=== PATIENT | female | born 1995 | race Caucasian/White ===

== ENCOUNTER 2018-04-09 18:27 | Emergency (ER) | payer OTHER ==
[2018-04-09 18:47] LABS: URINE HCG POC HCG POSITIVE (Negative)
[2018-04-09 19:45] LABS: ADD MAN DIFF? NO
[2018-04-09 19:54] LABS: BASO % 0 % (0-3); BILIRUBIN,URINE NEGATIVE (NEG); CLARITY,URINE CLEAR; EOS % 0 % (0-3); GLUCOSE,URINE NEGATIVE (NEG); HEMATOCRIT 37.9 % (36.0-47.0); LYMPH # 2.1 x10^3/uL (1.0-4.8); LYMPH % 19 % (24-48); MEAN CORPUSCULAR HEMOGLOBIN 31 pg (25-35); MEAN CORPUSCULAR HGB CONC 34 g/dL (31-37); MEAN CORPUSCULAR VOLUME 90 fL (79-100); MONO # 0.8 x10^3/uL (0.0-1.1); MONO % 7 % (0-9); NEUT # 8.2 x10^3uL (1.8-7.7); NEUT % 74 % (31-73); NITRITE,URINE NEGATIVE (NEG); PLATELET COUNT 224 x10^3/uL (140-400); PROTEIN,URINE NEGATIVE (NEG-TRACE); RED BLOOD COUNT 4.21 x10^6/uL (3.50-5.40); RED CELL DISTRIBUTION WIDTH 12.9 % (11.5-14.5); UROBILINOGEN,URINE 0.2 mg/dL (0.2 mg/dL); WHITE BLOOD COUNT 11.2 x10^3/uL (4.0-11.0)
[2018-04-09 20:09] LABS: BACTERIA,URINE MODERATE /HPF (0-FEW); COLOR,URINE STRAW; SQUAMOUS EPITHELIAL CELL,UR MANY /LPF; WBC,URINE OCC /HPF (0-4)
== END 2018-04-09 21:35 | disposition home or self-care (01) ==
LOC: ER 18:27
DX: O46.91 Antepartum hemorrhage, unspecified, first trimester (principal); Z3A.09 9 weeks gestation of pregnancy
CPT/HCPCS: 36415; 76801; 81001; 81025; 84702; 85025; 86900; 86901; 87086; 99285-25

== ENCOUNTER → 2018-06-08 | Outpatient (CLI) | payer OTHER | END | disposition home or self-care (01) | LOC: US 10:11 | DX: Z34.92 Encounter for supervision of normal pregnancy, unspecified, second trimester (principal); Z3A.18 18 weeks gestation of pregnancy | CPT/HCPCS: 76805 ==

== ENCOUNTER 2018-09-26 19:57 | Observation (INO) | payer OTHER ==
[2018-04-09 18:55] VITALS: BP 120/70
[2018-09-26 20:26] LABS: BILIRUBIN,URINE NEGATIVE (NEG); CLARITY,URINE CLEAR; COLOR,URINE YELLOW; NITRITE,URINE NEGATIVE (NEG); PROTEIN,URINE 30 mg/dL (NEG-TRACE); UROBILINOGEN,URINE 0.2 mg/dL (0.2 mg/dL)
[2018-09-26 20:32] LABS: BARBITURATES NEG (NEG); BENZODIAZEPINES NEG (NEG); CANNABINOIDS NEG (NEG); COCAINE NEG (NEG); METHADONE NEG (NEG); OPIATES NEG (NEG); PHENCYCLIDINE NEG (NEG)
[2018-09-26 20:33] LABS: AMPHETAMINE/METHAMPHETAMINE NEG (NEG)
[2018-09-26 20:37] LABS: BACTERIA,URINE FEW /HPF (0-FEW); RBC,URINE OCC /HPF (0-2); SQUAMOUS EPITHELIAL CELL,UR MOD /LPF; WBC,URINE 0 /HPF (0-4)
== END 2018-09-26 20:20 | disposition home or self-care (01) ==
LOC: 3 SO LND 19:57
PROVIDERS: ADMIT Family Medicine; ATTEND Family Medicine
DX: O13.3 Gestational [pregnancy-induced] hypertension without significant proteinuria, third trimester (principal); Z3A.34 34 weeks gestation of pregnancy
CPT/HCPCS: 80307; 81001; G0378; G0379

== ENCOUNTER 2018-10-01 13:55 | Observation (INO) | payer OTHER ==
[2018-04-09 18:55] VITALS: BP 120/70
[2018-10-01 14:45] LABS: BILIRUBIN,URINE NEGATIVE (NEG); CLARITY,URINE CLEAR; COLOR,URINE YELLOW; NITRITE,URINE NEGATIVE (NEG); PROTEIN,URINE 100 mg/dL (NEG-TRACE); UROBILINOGEN,URINE 0.2 mg/dL (0.2 mg/dL)
[2018-10-01 14:54] LABS: BACTERIA,URINE MODERATE /HPF (0-FEW); RBC,URINE OCC /HPF (0-2); SQUAMOUS EPITHELIAL CELL,UR MOD /LPF; WBC,URINE OCC /HPF (0-4)
== END 2018-10-01 16:32 | disposition home or self-care (01) ==
LOC: 3 SO LND 13:55
PROVIDERS: ADMIT Family Medicine; ATTEND Family Medicine
DX: O26.893 Other specified pregnancy related conditions, third trimester (principal); R03.0 Elevated blood-pressure reading, without diagnosis of hypertension; Z3A.35 35 weeks gestation of pregnancy
CPT/HCPCS: 81001; G0378; G0379

== ENCOUNTER 2018-10-08 10:07 | Observation (INO) | payer OTHER ==
[2018-04-09 18:55] VITALS: BP 120/70
== END 2018-10-08 12:06 | disposition home or self-care (01) ==
LOC: 3 SO LND 10:07
PROVIDERS: ADMIT Family Medicine; ATTEND Family Medicine
DX: O14.93 Unspecified pre-eclampsia, third trimester (principal); Z3A.36 36 weeks gestation of pregnancy
CPT/HCPCS: G0378; G0379; 59025

== ENCOUNTER → 2018-10-08 | Outpatient (CLI) | payer OTHER ==
[2018-04-09 18:55] VITALS: BP 120/70
[~2018-10-08] MED LIST: DOCU-109 PO; IBUP-1027 PO; LABE200T4 PO; OXYC1TAB15 PO
--- NOTE | 2018-10-08 19:56 | RAD ---
Biophysical Profile: Clinical History: Preeclampsia Technique: Limited sonographic examination was performed and multiple static images were obtained. Findings: biophysical profile is normal with 2 out of 2 for breathing movements, motion, tone and amniotic fluid volume. The amniotic fluid index is normal at 16.4 cm. There is a single live intrauterine . The heartbeat is confirmed at 145 beats per minute. Visualization of structures is limited due to advanced gestational age. The maternal cervix is not well seen due to cephalic positioning. There is a posterior placenta. The measurements are as follows: BPD 8.6 cm 34 weeks 4 days Head circumference 31 cm 34 weeks 2 days Abdominal circumference 29 cm 32 weeks 6 days Femur length 6.7 cm 34 weeks 2 days The LMP of 01/27/2018 corresponds with 36 week 2 day gestational age and estimated confinement of 11/03/2018 Estimated size by ultrasound is 34 weeks 0 days estimated confinement November 19, 2018 Estimated weight is 4 lbs. 15 oz. +/- 12 ounces Estimated weight percentile is 7 percent. IMPRESSION: 1. Single live intrauterine . 2. Discrepancy in size could be inaccurate LMP. 3. Normal 06/16 biophysical profile. Electronically signed by: Rajeev Cleary III, MD (10/08/2018 7:53 PM) [facility]
== END | disposition home or self-care (01) ==
LOC: US 16:39
PROVIDERS: ATTEND Family Medicine
DX: O14.93 Unspecified pre-eclampsia, third trimester (principal); Z3A.34 34 weeks gestation of pregnancy
CPT/HCPCS: 76819

== ENCOUNTER 2018-10-11 11:52 | Observation (INO) | payer OTHER ==
[2018-04-09 18:55] VITALS: BP 120/70
[2018-10-11] MEDS ORDERED: BETAMET ACET&NA PHOS 30 MG/5 ML VIAL. IM SCH (12:30)
--- NOTE | 2018-10-11 13:57 | RAD ---
Ultrasound biophysical profile exam, 10/11/2018: HISTORY: Elevated blood pressure The limited exam of the gravid uterus demonstrates a single fetus in a cephalic orientation. The heart rate is 152 bpm. The placenta lies posteriorly extending into the fundal region. A normal amount of amniotic fluid is evident with the OLIVIA calculated at 12.2. The weight was estimated at 5 pounds and 3 ounces. The gestational age was estimated at 34 weeks and 1 day with an EDC of 11/21/2018. This is mildly delayed relative to the EDC of 11/03/2018 described on the original ultrasound exam of 04/09/2018. This original EDC should be more accurate considering the stage in at which it was obtained. The following biophysical profile scores were obtained: breathing movements-2 motion-2 tone-2 Amniotic fluid volume-2 Total score-8 out of 8 IMPRESSION: 1. The ultrasound component of the biophysical profile score is 8 out of 8. 2. Mild EDC discrepancy as described above. Electronically signed by: Andrey Horvath MD (10/11/2018 1:54 PM) [facility]
[2018-10-11 18:13] LABS: UR PROTEIN RD 255.4 mg/dL (Not Estab.)
[2018-10-18] MEDS ORDERED: LABE200T4 PO (08:03)
[2018-10-18] MEDS ORDERED: OXYC1TAB15 PO (08:03)
[2018-10-18] MEDS ORDERED: IBUP-1027 PO (08:03)
[2018-10-18] MEDS ORDERED: DOCU-109 PO (08:03)
== END 2018-10-11 13:45 | disposition home or self-care (01) ==
LOC: 3 SO LND 11:52
PROVIDERS: ADMIT Family Medicine; ATTEND Family Medicine
DX: Z34.83 Encounter for supervision of other normal pregnancy, third trimester (principal); Z3A.36 36 weeks gestation of pregnancy
CPT/HCPCS: 76819; 82570; 84156; G0378; G0379; J0702; 36415